=== PATIENT | male | born 1990 | race Two or more races ===

== ENCOUNTER 2019-02-17 14:36 | Emergency (ER) | payer MEDICAID ==
[~2019-02-17] VITALS: Ht 175.3 cm; Wt 100.0 kg
[2019-02-17] MEDS ORDERED: IBUPROFEN 600 MG TABLET PO ONE (15:30)
[2019-02-17 16:12] LABS: INFLUENZA TYPE A POSITIVE FOR TYPE A (NEGATIVE); INFLUENZA TYPE B NEGATIVE FOR TYPE B (NEGATIVE)
[2019-02-17 17:19] VITALS: BP 136/77
== END 2019-02-17 17:21 | disposition home or self-care (01) ==
LOC: EMS 14:40
DX: J11.1 Influenza due to unidentified influenza virus with other respiratory manifestations (principal)
CPT/HCPCS: 87804